=== PATIENT | female | born 1950 | race Caucasian/White ===

== ENCOUNTER 2016-11-16 06:00 | Day surgery (SDC) | payer OTHER ==
[2016-11-11 15:32] VITALS: BMI 29.2
[2016-11-16] MEDS ORDERED: ceFAZolin SODIUM 1 GM VIAL ONE (09:37)
[2016-11-16] MEDS ORDERED: IBUPROFEN 400 MG TABLET (FP) PO PRN (11:30)
[2016-11-16] MEDS ORDERED: ONDANSETRON 4 MG/2 ML VIAL IVPB PRN (11:30)
[2016-11-16] MEDS ORDERED: traMADol HCL 50 MG TABLET PO PRN (11:34)
[2016-11-16] MEDS ORDERED: ceFAZolin SODIUM 1 GM VIAL IVPB ONE (12:24)
[2016-11-16] MEDS ORDERED: oxyCODONE HCL 5 MG TABLET PO PRN (14:24)
[2016-11-16] MEDS ORDERED: LACTATED RINGERS SOLUTION 1,000 ML IV SCH (14:30)
--- NOTE | 2016-11-16 16:02 | OP ---
DATE OF OPERATION: 11/16/2016 PREOPERATIVE DIAGNOSIS: Multinodular goiter/Graves disease. POSTOPERATIVE DIAGNOSIS: Multinodular goiter/Graves disease. PROCEDURE PERFORMED: Total thyroidectomy, intermittent wound closure (8 cm). SURGEON: Abhi Marcelo MD SPRING ASSEMBLER: Iggy Lugo MD ANESTHESIA: General. ANESTHESIOLOGIST: Edith Rader MD INDICATIONS: The patient is a 66-year-old woman with a long-standing history of multinodular goiter and Graves disease, managed by the endocrine service with methimazole for some time. Decision made at this juncture, by both patient and inorganic chemical technician, to move in the direction of surgical management of her disease. She presents for total thyroidectomy. The indications, alternatives and possible complications were reviewed. Consent was obtained. DESCRIPTION OF PROCEDURE: With the patient in the supine position and with the neck extended, the anterior neck was prepped and draped in the usual sterile fashion using chlorhexidine. A 8-cm anterior transverse neck incision was made approximately 2 fingerbreadths above the sternal notch. The incision was deepened into the subcutaneous space. The subcutaneous tissues and platysma were divided sharply. A superior flap was raised to the level of the hyoid bone. The inferior flap was raised, using sharp dissection, to the level of the recess of the sternal notch. Retractors were placed. The strap muscles were then split in the midline and the underlying thyroid gland easily visualized. First directing our attention to the right side, the inferior pole was identified. The inferior pole vessels were taken under direct vision using the ligature system. Moving cranially, the middle vein was identified and taken as well. Now directing our attention to the superior pole of the right gland, the pole was retracted caudally and the pole vessels were identified and taken serially using electrocautery. The superior parathyroid on the right side was identified. The inferior gland was not seen during the course of dissection. The recurrent laryngeal nerve in the tracheoesophageal groove was noted throughout the course of the dissection. The gland was then rolled up over the trachea and ultimately freed from the trachea using sharp dissection. Now directing our attention to the left side, the left gland was approached as described above for the right. The inferior pole vessels were identified and divided with the electrocautery system. The middle thyroid vein was taken similarly. The recurrent laryngeal nerve on the left side was identified. The superior pole was then retracted caudally and the superior vessels taken under direct vision. Both the superior and inferior parathyroid glands were identified during the course of dissection on the left. Ultimately the gland was swept up over the trachea and freed from its attachments using electrocautery, including the thyroid isthmus. The gland was delivered in its entirety. A suture was placed at the level of the left inferior pole to orient the pathologist. The neck was irrigated bilaterally and adequate hemostasis ensured. A Willie- Camilo drain was placed in the recess of the neck and left to exit through a separate stab wound at the level of the right upper chest wall, where the drain was tacked to the skin with 2-0 silk suture material. After adequate hemostasis was ensured, the wound was closed in layers. The strap muscles were reapproximated in the midline using a continuous 3-0 chromic suture. The platysma was approximated using interrupted 3-0 chromic sutures. The subcuticular layer was approximated using interrupted 4-0 Biosyn sutures. The skin edges was reapproximated using 4-0 Biosyn in the subcuticular space in continuous fashion. Dermabond was applied. The procedure was terminated. Needle and sponge counts were correct. Estimated blood loss was 100 mL. SPECIMEN: Thyroid gland. DRAINS: One SUKI. The patient tolerated the procedure. The procedure was terminated. Taiwo MONK/[id number] cc: CHU BURKETT MD MTDD
[2016-11-16] MEDS: D5-1/2NS+20 MEQ KCL - 1,000 ML IV SCH (17:30)
[2016-11-16] MEDS: ACETAMINOPHEN 325 MG TABLET (FP) PO PRN (20:50)
[2016-11-16] MEDS: carBAMazepine 200 MG TABLET PO SCH (21:24)
[2016-11-16] MEDS: LAMOTRIGINE 100 MG, LAMOTRIGINE 25 MG PO SCH (21:24)
[2016-11-16] MEDS ORDERED: EPA PO SCH (22:00)
[2016-11-16] MEDS ORDERED: [UNRECOGNIZED DRUG - OTHER] PO SCH (22:00)
[2016-11-16] MEDS ORDERED: lamoTRIgine 100 MG TABLET (FP) PO SCH (22:00)
[2016-11-16] MEDS ORDERED: DOCOSAHEXANOIC ACID PO SCH (22:00)
[2016-11-17] MEDS: D5-1/2NS+20 MEQ KCL - 1,000 ML IV SCH (01:38)
[2016-11-17] MEDS: carBAMazepine 200 MG TABLET PO SCH ×2 (06:17→13:49)
[2016-11-17] MEDS: ACETAMINOPHEN 325 MG TABLET (FP) PO PRN ×2 (06:43→13:49)
[2016-11-17 08:07] LABS: CALCIUM 8.2 mg/dL (8.5-10.1)
[2016-11-17] MEDS ORDERED: PT OWN MED DRAWER 7, Y5N ONE ×2 (08:56→13:47)
[2016-11-17] MEDS: LAMOTRIGINE 100 MG, LAMOTRIGINE 25 MG PO SCH (09:02)
[2016-11-17] MEDS ORDERED: MULTIVITAMINS (DAILY MVI) TABLET (FP) PO SCH (10:00)
[2016-11-17] MEDS ORDERED: ESCITALOPRAM OXALATE 10 MG TABLET (FP) PO SCH (10:00)
[2016-11-17] MEDS ORDERED: CHOLECALCIFEROL (VITAMIN D3) 1,000 UNIT TABLET (FP) PO SCH (10:00)
[2016-11-17] MEDS ORDERED: BIOTIN 10000 MCG PO SCH (10:00)
--- NOTE | 2016-11-17 12:41 | PN ---
Progress Note (short form) - Note Progress Note: Anesthesia postop note 66 y/o F s/p ga for thyroidectomy POD#1, vss, aaox3, no complaints No anesthesia complications.
[2016-11-17 13:46] VITALS: BP 137/76; PULSE 78; TEMP 97.6
[2016-11-17 14:07] LABS: THYROID STIMULATING HORMONE 0.67 uIU/ml (0.358-3.74)
--- NOTE | 2016-11-21 15:15 | PATH ---
Surgical Pathology Report Patient Name: SUSANNAH LUA [facility] Rec. #: [id number] /Age/Gender: 1950 (Age: 66) / F Account: [id number] Location: AMBULATORY SURG Taken: 11/16/2016 Received: 11/17/2016 Reported: 11/21/2016 Physicians: Abhi Marcelo M.D. Specimen(s) Received THYROID, TOTAL THYROIDECTOMY Clinical History Thyrotoxicosis with diffuse goiter Final Diagnosis THYROID GLAND, TOTAL THYROIDECTOMY: TWO FOCI OF PAPILLARY THYROID CARCINOMA, CLASSICAL AND FOLLICULAR VARIANTS, NON-ENCAPSULATED. CARCINOMA LOATION AND SIZE: 1.1 CM FOCUS IN THE RIGHT LOBE; 0.6 CM FOCUS IN THE LEFT LOBE. SURGICAL RESECTION MARGINS: CARCINOMA EXTENDS TO THE INKED CAUTERIZED RESECTIONS MARGINS IN BOTH FOCI. EXTRATHYROIDAL EXTENSIONS: NOT DEFINITIVELY IDENTIFIED, LIMITED ASSESSMENT (SEE COMMENT). LYMPOVASCULAR INVASION: FOCALLY SUSPICIOUS (RIGHT LOBE). PERINEURAL INVASION: NOT IDENTIFIED. SURROUNDING THYROID TISSUE: MULTINODULAR HYPERPLASIA WITH DEGENERATIVE CHANGES AND COLLOID SCALLOPING (SEE COMMENT). TWO PARATHYROID GLANDS PRESENT. ONE LYMPH NODE (CENTRAL), NEGATIVE FOR METASTATIC CARCINOMA (0/1). PATHOLOGIS STAGING: PRIMARY TUMOR: pT1b LYMPH NODES: pNX Comment: Two foci of papillary carcinoma are present bilaterally, extending to the inked cauterized resection margin in both lobes. The assessment for extrathyroidal extensions is limited in the areas of involved margin, as perithyroidal tissue is not present in these areas. Colloid scalloping is compatible with clinical history of Grave's disease. Comments Thyroid carcinoma: Surgical Pathology Cancer Case Summary (Checklist) Based on AJCC/UICC TNM, 7th edition Procedure _x_ Total thyroidectomy Specimen Integrity _x_ Intact Specimen Size Right lobe: 5.5 x 2.8 x 1.9 cm Left lobe: 5.3 x 3.4 x 1.7 cm Isthmus: 1.8 x 1.2 x 0.5 cm Tumor Focality _x_ Multifocal: _x_ Bilateral Dominant Tumor Tumor Laterality _x_ Right lobe Tumor Size Greatest dimension: 1.1 cm Histologic Type Papillary carcinoma Variant, specify: _x_ Classical (usual) Architecture: _x_ Classical (papillary) Cytomorphology: _x_ Classical Histologic Grade _x_ G1: Well differentiated Margins _x_ Margin involved by carcinoma Tumor Capsule _x_ None Tumor Capsular Invasion _x_ Not applicable Lymph-Vascular Invasion _x_ Focally suspicious Extrathyroidal Extension _x_ Not definitively identified, limited assessment (see comment above) Second Tumor (for multifocal tumors only) Tumor Laterality _x_ Left lobe Tumor Size Greatest dimension: 0.6 cm Histologic Type _x_ Papillary carcinoma Variant, specify: _x_ Follicular variant Architecture: _x_ Predominantly Follicular Cytomorphology: _x_ Classical Histologic Grade _x_ G1: Well differentiated Margins _x_ Margin involved by carcinoma Tumor Capsule _x_ None Tumor Capsular Invasion _x_ Not applicable Lymph-Vascular Invasion _x_ Not definitively identified Extrathyroidal Extension _x_ Not definitively identified, limited assessment (see comment above) Pathologic Staging (pTNM): Primary Tumor (pT): mpT1b Lymph Nodes (pN): pNX Distant metastases (pM): not applicable Electronically Signed Ezequiel Acuña M.D. Gross Description Received in formalin labeled "thyroid" is a 28 g total thyroidectomy specimen with a suture marking the left lower lobe, per surgeon. The outer surface is murillo-hernandez and shaggy. The left lobe (5.3 x 3.4 x 1.7 cm) is inked black, the right lobe (5.5 x 2.8 x 1.9 cm) is inked red and the isthmus (1.8 x 1.2 x 0.5 cm) is inked green. Sectioning reveals abundant heterogeneous nodules, some of which display solid murillo parenchyma as well as focal areas of hemorrhage and calcification. No normal thyroid parenchyma is identified. Procurement Internship sections are submitted in 19 cassettes as follows: 1-7-left lobe sequentially from superior to inferior; 5-7-anrqfnbj submitted isthmus from left to right; 10-19-right lobe sequentially from superior to inferior. Additional sections are submitted as follows: 40-34-znrhdwhvum left lobe; 09-05-acgzegdhek right lobe. 11/17/201611/17/2016
== END 2016-11-17 15:26 | disposition home or self-care (01) ==
LOC: JASUSAT 06:00 → J6S 16:38 → JASUSAT 11-17 15:26
PROVIDERS: ATTEND Surgery
PROC: 0GTK0ZZ Resection of Thyroid Gland, Open Approach (ICD-10-PCS; principal; 2016-11-16 10:00)
DX: E05.20 Thyrotoxicosis with toxic multinodular goiter without thyrotoxic crisis or storm (principal)
CPT/HCPCS: 36415; 82310; 84443; 88307-TC; 94010; 94760

== ENCOUNTER 2018-10-18 05:00 | Day surgery (SDC) | payer BC, OTHER ==
[2018-10-17 12:55] VITALS: BMI 30.2
[2018-10-18] MEDS ORDERED: ONDANSETRON 4 MG/2 ML VIAL IVPUSH PRN (07:52)
[2018-10-18] MEDS ORDERED: LACTATED RINGERS SOLUTION 1,000 ML IV SCH (08:00)
[2018-10-18] MEDS ORDERED: PROPOFOL 20 ML ONE (08:03)
[2018-10-18] MEDS ORDERED: MIDAZOLAM HCL 2 MG/2 ML SINGLE DOSE VIAL ONE (08:03)
[2018-10-18] MEDS ORDERED: SUCCINYLCHOLINE CHLORIDE 200 MG/10 ML SYRINGE ONE (08:03)
[2018-10-18] MEDS ORDERED: ePHEDrine SULFATE 50 MG/1 ML AMPULE ONE (08:39)
[2018-10-18] MEDS ORDERED: ceFAZolin SODIUM 1 GM VIAL ONE (08:47)
[2018-10-18] MEDS ORDERED: DEXAMETHASONE SOD PHOSPHATE 4 MG/1 ML VIAL ONE (08:59)
--- NOTE | 2018-10-18 12:30 | OP ---
Operative Note - Note: Operative Date: 10/18/18 Pre-Operative Diagnosis: Breast Asymmetry after Cancer Reconstruction Operation: Left Breast Removal of Prosthesis, Revision of Implant Pocket, Insertion of Perforated Alloderm Sheet, Insertion of New Prosthesis. Right Breast Revision Mastopexy Implants: [place] Round Smooth Moderate Plus Profile 600cc Post-Operative Diagnosis: Same as Pre-op Surgeon: Edinson Riddle Anesthesia: General Specimens Removed: Old Implant Left Breast Operative Report Dictated: Yes
[2018-10-18] MEDS ORDERED: ACETAMINOPHEN INJECTION 100 ML IVPB ONE (12:38)
[2018-10-18 15:31] VITALS: BP 107/59; PULSE 90; TEMP 97.5
--- NOTE | 2018-10-19 00:31 | OP ---
DATE OF OPERATION: 10/18/2018 PREOPERATIVE DIAGNOSIS: Breast asymmetry after cancer reconstruction. POSTOPERATIVE DIAGNOSIS: Breast asymmetry after cancer reconstruction. PROCEDURE PERFORMED: Left breast removal of prosthesis, revision of the implant pocket, insertion of perforated AlloDerm sheet and insertion of new prosthesis; right breast revision mastopexy. SURGEON: Edinson Tristan MD ANESTHESIA: General via LMA. PROCEDURE: The patient was on the operating table in supine position, and general anesthesia was administered by the anesthesiologist. The area of the chest was then prepped and draped in the usual sterile fashion. The left breast was addressed first. The inframammary incision was made over a previous surgical scar, and this was carried down sharply through subcutaneous tissues. Electrocautery was used to dissect deeper and the implant pocket was entered. The implant was removed without difficulty, and the implant pocket was examined using the fiberoptic lighted retractor. The lateral implant pocket was significantly stretched, and this was closed with multiple layers of suture, including 3-0 V-Loc and 3-0 Biosyn suture. The implant pocket was further extended superiorly and medially without difficulty. The inferior edge of the pectoralis major muscle was measured and a medium thickness perforated AlloDerm sheet was brought onto the field and soaked for 5 minutes. After soaking, it was marked to the dimensions as necessary within the pocket and trimmed. The inferior edge of the pectoralis major muscle was then sutured in interrupted mattress fashion to the superior edge of the AlloDerm sheet with correct orientation. The implant selected was a [place] memory gel, smooth, round, moderate-plus profile implant, 600 mL in size. Once inserted with the assistance of a Paredes funnel, the AlloDerm was reflected over the inferior pole of the implant and sutured in place using 2-0 Vicryl sutures in interrupted fashion at the level of the inframammary fold. This wound was then closed in layered fashion. Deep tissues were closed with number 3-0 Biosyn suture in interrupted buried fashion, and skin was closed with 4-0 V-Loc 90 suture in continuous fashion. The right breast was then addressed, and preoperative markings placed with the patient in the standing position were now used as a guide for surgery. The incisions were made as marked using a number 15 scalpel blade and a 46-mm cookie cutter. The area of incisions was de-epithelialized, and lateral, superior, and medial flaps were created. The central pillars were approximated using 3-0 Biosyn suture in continuous fashion, and skin was closed in layered fashion, deep tissues with number 3-0 Biosyn suture in interrupted buried fashion, and 4-0 V-Loc 90 suture used in continuous fashion for skin. Steri-Strips were then applied on both sides, as were sterile dressings, which were secured with a surgical bra. The patient was then awoken from anesthesia without any difficulty and taken from the operating room to the recovery room in satisfactory condition, having tolerated the procedure well. EDINSON TRISTAN M.D. /[id number]
--- NOTE | 2018-10-19 15:52 | PATH ---
Surgical Pathology Report Patient Name: SUSANNAH LUA [facility]. Rec. #: [id number] /Age/Gender: 1950 (Age: 68) / F Account: [id number] Location: [facility] SURGICAL Taken: 10/18/2018 Received: 10/18/2018 Reported: 10/19/2018 Physicians: Edinson Riddle M.D. Specimen(s) Received A: LEFT BREAST IMPLANT B: RIGHT BREAST SKIN AND TISSUE Clinical History None given Final Diagnosis A. BREAST IMPLANT, LEFT, REMOVAL: BREAST IMPLANT. MACROSCOPIC DIAGNOSIS. B. BREAST SKIN AND TISSUE, EXCISION: BENIGN FIBROADIPOSE TISSUE. SKIN WITHOUT SIGNIFICANT PATHOLOGIC FINDINGS. Electronically Signed Heather Cao M.D. Gross Description A. Received fresh labeled "left breast implant," is a 14.5 cm in diameter x 3 cm in depth clear, rubbery, intact breast implant. No soft tissue is present. No sections are submitted, gross only. B. Received in formalin labeled "right breast skin and tissue," is a 21 g, 14.0 x 4.0 x 0.5 cm aggregate of 2 murillo, unoriented portions of skin with underlying fibroadipose tissue. The epidermal surface of the larger portion displays a focal defect. No discrete lesions are identified. Organization Development Consultant sections are submitted in one cassette. 10/18/201810/18/2018
== END 2018-10-18 15:10 | disposition home or self-care (01) ==
LOC: JASU-SURG 05:00
PROVIDERS: ATTEND Plastic Surgery
PROC: 0HPU0JZ Removal of Synthetic Substitute from Left Breast, Open Approach (ICD-10-PCS; principal; 2018-10-18 08:52)
PROC: 0HRU0JZ Replacement of Left Breast with Synthetic Substitute, Open Approach (ICD-10-PCS; 2018-10-18 08:52)
PROC: 0HQT0ZZ Repair Right Breast, Open Approach (ICD-10-PCS; 2018-10-18 08:52)
DX: N65.1 Disproportion of reconstructed breast (principal); Z85.3 Personal history of malignant neoplasm of breast
CPT/HCPCS: 88300-TC; 88304-TC; 94760; J0131

== ENCOUNTER 2023-03-27 12:20 | Emergency (ER) | payer OTHER ==
[2023-03-27 12:27] VITALS: BP 130/82; PULSE 92; RESP 18; TEMP 98.2; BMI 28.3
[2023-03-27] MEDS ORDERED: TRANEXAMIC ACID 1000 MG/10 ML VIAL IVPUSH ONE (13:22)
[2023-03-27] MEDS ORDERED: TRANEXAMIC ACID 1000 MG/10 ML VIAL ONE (13:25)
== END 2023-03-27 15:48 | disposition home or self-care (01) ==
LOC: JER 12:20
PROC: 3E033GC Introduction of Other Therapeutic Substance into Peripheral Vein, Percutaneous Approach (ICD-10-PCS; principal; 2023-03-27)
DX: R04.0 Epistaxis (principal)
CPT/HCPCS: 99284-25